=== PATIENT | male | born 1995 | race Caucasian/White ===

== ENCOUNTER 2020-01-29 14:04 | Emergency (ER) | payer OTHER ==
--- NOTE | 2020-01-29 14:33 | EDM.PDOC ---
ED HPI GENERAL MEDICAL PROBLEM - General Stated Complaint: CHEST PAIN Time Seen by Provider: 01/29/20 14:15 Source of Information: Reports: Patient History Limitations: Reports: No Limitations - History of Present Illness INITIAL COMMENTS - FREE TEXT/NARRATIVE: c/o palpitations felt fine yesterday, ate supper, went to bed at 8:30p as usual, slept until AM, began construction job at 5a, ate 2 Dennis bars for bfast, drank "a lot of water" this AM no caffeine, no other types of fluids had a one hour lunch break, ate his lunch, was resting in his truck after lunch when heart began to pound, felt like it was jumping out of his chest no prior CV problems, no cigs, no THC no cp, no n/v, no f/c/d says he has a hx of anxiety altho was not feeling anxious at the time on Buspar, being weaned off of Effexor, says his new psychiatrist is putting him on a high dose of an antidepressant that is also used for OCD has apt with psychiatrist in [place] in 2d PCP in [place] as well lives with parents who are in good health denies current stressors, did say his phone stopped working this AM palpitations lasted ~1h, stopped by the time he arrived at ED, EKG NSR and wnl, no comparison. VSS drank alcohol 3d ago on Tuesday, none since, no street drugs ED ROS GENERAL - Review of Systems Review Of Systems: See Below Constitutional: Reports: No Symptoms HEENT: Reports: No Symptoms Respiratory: Reports: No Symptoms Cardiovascular: Reports: Palpitations. Denies: Chest Pain Endocrine: Reports: No Symptoms GI/Abdominal: Reports: No Symptoms : Reports: No Symptoms Musculoskeletal: Reports: No Symptoms Skin: Reports: No Symptoms Neurological: Reports: No Symptoms Psychiatric: Reports: No Symptoms Hematologic/Lymphatic: Reports: No Symptoms Immunologic: Reports: No Symptoms ED EXAM, GENERAL - Physical Exam Exam: See Below Exam Limited By: No Limitations General Appearance: Alert, WD/WN, No Apparent Distress Eye Exam: Bilateral Eye: PERRL Ears: Hearing Grossly Normal Nose: Normal Inspection, Normal Mucosa, No Blood Head: Atraumatic, Normocephalic Neck: Normal Inspection, Supple, Non-Tender, Full Range of Motion. No: Lymphadenopathy (R), Lymphadenopathy (L) Respiratory/Chest: No Respiratory Distress, Lungs Clear, Normal Breath Sounds, No Accessory Muscle Use, Chest Non-Tender Cardiovascular: Regular Rate, Rhythm, No Edema, No Gallop, No JVD, No Murmur, No Rub GI/Abdominal: Soft, Non-Tender, No Distention Back Exam: Normal Inspection, Full Range of Motion. No: CVA Tenderness (R), CVA Tenderness (L) Extremities: Normal Inspection, Normal Range of Motion, Non-Tender, No Pedal Edema Neurological: Alert, Oriented, CN II-XII Intact, Normal Cognition, No Motor/Sensory Deficits Psychiatric: Other (quiet, no overt anxiety) Skin Exam: Warm, Dry, Intact, Normal Color, No Rash Lymphatic: No Adenopathy Course - Orders/Labs/Meds Labs: Laboratory Tests 01/29/20 01/29/20 01/29/20 Range/Units 14:35 14:35 14:35 WBC 8.0 (4.5-12.0) X10-3/uL RBC 4.53 (4.30-5.75) x10(6)uL Hgb 14.3 (13.5-17.8) g/dL Hct 42.4 (30.0-51.3) % MCV 93.5 (80-96) fL MCH 31.6 (27.7-33.6) pg MCHC 33.8 (32.2-35.4) g/dL RDW 12.5 (11.5-15.5) % Plt Count 325 (125-369) X10(3)uL MPV 6.7 L (7.4-10.4) fL Neut % (Auto) 63.9 (46-82) % Lymph % (Auto) 24.1 (13-37) % [place] % (Auto) 10.1 (4-12) % Eos % (Auto) 2 (1.0-5.0) % Baso % (Auto) 0 (0-2) % Neut # (Auto) 5.2 (1.6-8.3) # Lymph # (Auto) 1.9 (0.6-5.0) # [place] # (Auto) 0.8 (0.0-1.3) # Eos # (Auto) 0.1 (0.0-0.8) # Baso # (Auto) 0.0 (0.0-0.2) # Sodium 141 (135-145) mmol/L Potassium 3.4 L (3.5-5.3) mmol/L Chloride 104 (100-110) mmol/L Carbon Dioxide 25 (21-32) mmol/L BUN 17 (7-18) mg/dL Creatinine 1.0 (0.70-1.30) mg/dL Est Cr Clr Drug Dosing TNP Estimated GFR (MDRD) > 60 (>60) BUN/Creatinine Ratio 17.0 (9-20) Glucose 110 (80-116) mg/dL Calcium 9.1 (8.6-10.2) mg/dL Total Bilirubin 0.5 (0.1-1.3) mg/dL AST 24 (5-25) IU/L ALT 26 (12-36) U/L Alkaline Phosphatase 73 (56-112) IU/L Troponin I 7.1 (4.0-60.3) pg/mL C-Reactive Protein < 0.2 L (0.5-0.9) mg/dL Total Protein 7.3 (6.0-8.0) g/dL Albumin 4.2 (3.5-5.2) g/dL Globulin 3.1 g/dL Albumin/Globulin Ratio 1.4 Urine Color (YELLOW) Urine Appearance (CLEAR) Urine pH (5.0-6.5) Ur Specific [place] (1.010-1.025) Urine Protein (NEGATIVE) mg/dL Urine Glucose (UA) (NORMAL) mg/dL Urine Ketones (NEGATIVE) mg/dL Urine Occult Blood (NEGATIVE) Urine Nitrite (NEGATIVE) Urine Bilirubin (NEGATIVE) Urine Urobilinogen (NEGATIVE) mg/dL Ur Leukocyte Esterase (NEGATIVE) Urine RBC (0-5) Urine WBC (0-5) Ur Squamous Epith Cells (NS,R,O) Urine Bacteria (NS) 01/29/20 Range/Units 14:50 WBC (4.5-12.0) X10-3/uL RBC (4.30-5.75) x10(6)uL Hgb (13.5-17.8) g/dL Hct (30.0-51.3) % MCV (80-96) fL MCH (27.7-33.6) pg MCHC (32.2-35.4) g/dL RDW (11.5-15.5) % Plt Count (125-369) X10(3)uL MPV (7.4-10.4) fL Neut % (Auto) (46-82) % Lymph % (Auto) (13-37) % [place] % (Auto) (4-12) % Eos % (Auto) (1.0-5.0) % Baso % (Auto) (0-2) % Neut # (Auto) (1.6-8.3) # Lymph # (Auto) (0.6-5.0) # [place] # (Auto) (0.0-1.3) # Eos # (Auto) (0.0-0.8) # Baso # (Auto) (0.0-0.2) # Sodium (135-145) mmol/L Potassium (3.5-5.3) mmol/L Chloride (100-110) mmol/L Carbon Dioxide (21-32) mmol/L BUN (7-18) mg/dL Creatinine (0.70-1.30) mg/dL Est Cr Clr Drug Dosing Estimated GFR (MDRD) (>60) BUN/Creatinine Ratio (9-20) Glucose (80-116) mg/dL Calcium (8.6-10.2) mg/dL Total Bilirubin (0.1-1.3) mg/dL AST (5-25) IU/L ALT (12-36) U/L Alkaline Phosphatase (56-112) IU/L Troponin I (4.0-60.3) pg/mL C-Reactive Protein (0.5-0.9) mg/dL Total Protein (6.0-8.0) g/dL Albumin (3.5-5.2) g/dL Globulin g/dL Albumin/Globulin Ratio Urine Color Yellow (YELLOW) Urine Appearance Slightly cloudy (CLEAR) Urine pH 8.0 H (5.0-6.5) Ur Specific [place] 1.015 (1.010-1.025) Urine Protein Negative (NEGATIVE) mg/dL Urine Glucose (UA) Normal (NORMAL) mg/dL Urine Ketones Negative (NEGATIVE) mg/dL Urine Occult Blood Negative (NEGATIVE) Urine Nitrite Negative (NEGATIVE) Urine Bilirubin Negative (NEGATIVE) Urine Urobilinogen Normal (NEGATIVE) mg/dL Ur Leukocyte Esterase Negative (NEGATIVE) Urine RBC 0-5 (0-5) Urine WBC 0-5 (0-5) Ur Squamous Epith Cells Occasional (NS,R,O) Urine Bacteria Few H (NS) Meds: Medications Discontinued Medications Generic Name Dose Route Start Last Admin Trade Name Luis PRN Reason Stop Dose Admin Potassium Chloride 40 meq 01/29/20 15:11 Klor-Con M20 PO 01/29/20 15:12 ONETIME ONE - Re-Assessments/Exams Free Text/Narrative Re-Assessment/Exam: 01/29/20 15:25 w/u neg, 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 Continue current meds. Keep appointment in 2 days with your psychiatrist as scheduled. For symptoms in the future, use the stress/anxiety reduction techniques that you have learned. Return to ED if you are feeling worse.
[2020-01-29] MEDS ORDERED: Potassium Chloride 20 MEQ Tab.ER PO ONE (15:11)
== END 2020-01-29 15:50 | disposition home or self-care (01) ==
LOC: FB.ED 14:04
DX: R00.2 Palpitations (principal); E87.6 Hypokalemia
CPT/HCPCS: 36415; 80053; 81001; 84484; 85025; 86140; 93005; 99283; 99285-25; A9270-GY